=== PATIENT | male | born 1955 | race Caucasian/White ===

== ENCOUNTER 2024-08-08 01:30 | Day surgery (SDC) | payer MEDICARE, SELFPAY ==
[2024-07-30 10:00] VITALS: BMI 31.1
[2024-08-08 11:15] VITALS: BP 158/93; PULSE 95; RESP 20; TEMP 36.1; O2SAT 98
[2024-08-08] MEDS: LACTATED RINGERS 1,000 ML 150 ML IV CONT (11:22)
--- NOTE | 2024-08-08 12:15 | PM.HPGS ---
History of Present Illness History of Present Illness Consent: Risks, benefits, and alternatives have been discussed and questions answered. Patient agrees to proceed with procedure. Chief complaint: Neoplasm Screening Narrative: Andrew Cedeno is a 69 year old male with colon polyp in 2019 Review of Systems Review of Systems: All systems reviewed & are unremarkable except as noted in HPI and below PMFSH Past Medical History Medical History (Updated 08/08/24 @ 12:15 by Artem Mendosa MD) Colon polyp COPD (chronic obstructive pulmonary disease) Hyperplastic colonic polyp Mixed hyperlipidemia Cancer of nasal cavities Hypertension Surgical History Surgical History H/O rhinoplasty Patient had nasal cancer removal surgery 2015 OA H/O colonoscopy Family History Family History Father Hypertension Family history of elevated blood lipids Acute myocardial infarction, Onset Age: 69 Family history of coronary artery disease Heart disease Mother Family history of malignant neoplasm of breast in first degree relative Carcinoma of colon Sibling Family history of malignant neoplasm of breast in first degree relative Carcinoma of colon Malignant neoplasm of prostate Social History Social History (Updated 07/30/24 @ 08:56 by Anastacio Klein) Social History: 07/29/24 somewhat confident with medical forms Smoking status: Former smoker Tobacco type: cigarettes Smoking end date: 01/23/98 Alcohol intake: current Alcohol use details: Rarely Substance use: never Substance use type: does not use Do You Feel Safe in your Home?: Yes Lack of Transportation: No Lack of Food: Never True Current Housing: I Have Housing Concerned About Future Housing: No Difficulty Paying Gas/Electric Bills: No Difficulty Paying for Meds: No Currently Unemployed: No Education: Don't Know Difficulty w/ Childcare or Family Care: No Living arrangements: with family Additional living arrangements comments: Lives with Occupation/Education: retired Spiritual care concerns: No Agree to blood products: Yes Meds Home Medications and Allergies Home Medications ?Medication ?Instructions ?Recorded ?Confirmed ?Type albuterol sulfate 90 mcg/actuation 2 puff inhalation Q6H PRN copd 02/01/24 08/01/24 History aerosol inhaler lisinopril 20 mg tablet 20 mg PO DAILY #90 tabs 02/01/24 08/08/24 Rx umeclidinium 62.5 mcg-vilanterol 1 inh inhalation DAILY 02/01/24 08/08/24 History 25 mcg/actuation powdr for inhalation (Anoro Ellipta) pantoprazole 40 mg tablet,delayed 40 mg PO QAM #90 tabs 06/12/24 08/08/24 Rx release metoprolol tartrate 25 mg tablet 25 mg PO BID #180 tabs 08/07/24 08/08/24 Rx Allergies Allergy/AdvReac Type Severity Reaction Status Date / Time No Known Allergies Allergy Verified 08/08/24 11:14 Vital Signs Vital Signs - 24 hr 08/08/24 11:15 Temperature 97 F L Pulse Rate 95 Respiratory Rate 20 Blood Pressure 158/93 H Pulse Oximetry 98 Oxygen Delivery Room Air Exam Const: General: comfortable and no acute distress HENMT: Face/Nose/Sinus: Normal nares present Eyes: General: appearance normal, both eyes and all related structures Neck: Neck: no JVD Resp: Auscultation: clear to auscultation bilaterally Cardio: Rate: regular rate Rhythm: regular rhythm GI: Inspection: non-distended GI Palp: Yes Soft to palpation Skin: General skin exam: normal color Neuro: General: gait normal Speech: normal speech Extrem: General: normal to inspection Psych: Mental Status: mental status grossly normal Assessment and Plan Assessment and plan (1) Colon polyp: Code(s): K63.5 - Polyp of colon Status: Acute Assessment and Plan: colonoscopy
--- NOTE | 2024-08-08 12:19 | P.PNAN_ITS ---
Anes - Initial Pre Proc Eval Procedure: Operation Date: 08/08/24 12:30 Proposed Procedures p Screening Colonoscopy - Artem Mendosa MD Date/Time: 08/08/24 12:19 Surgeon: Artem Mendosa MD Pre Op Diagnosis: Neoplasm Screening Patient Data Age: 69 Gender: M Height: 1.83 m Weight: 100.7 kg Last Vital Signs Temp 36.1 C L 08/08/24 11:15 Pulse 95 08/08/24 11:15 Resp 20 08/08/24 11:15 BP 158/93 H 08/08/24 11:15 Pulse Ox 98 08/08/24 11:15 O2 Del Method Room Air 08/08/24 11:15 Allergies Allergy/AdvReac Type Severity Reaction Status Date / Time No Known Allergies Allergy Verified 08/08/24 11:14 Home Medications ?Medication ?Instructions ?Recorded ?Confirmed ?Type albuterol sulfate 90 mcg/actuation 2 puff inhalation Q6H PRN copd 02/01/24 08/01/24 History aerosol inhaler lisinopril 20 mg tablet 20 mg PO DAILY #90 tabs 02/01/24 08/08/24 Rx umeclidinium 62.5 mcg-vilanterol 1 inh inhalation DAILY 02/01/24 08/08/24 History 25 mcg/actuation powdr for inhalation (Anoro Ellipta) pantoprazole 40 mg tablet,delayed 40 mg PO QAM #90 tabs 06/12/24 08/08/24 Rx release metoprolol tartrate 25 mg tablet 25 mg PO BID #180 tabs 08/07/24 08/08/24 Rx Patient hx anesthesia problems: none Family hx anesthesia problems: none Results Review: All pre-operative results and documents have been reviewed as part of the pre- operative evaluation. [facility] Past Medical History Medical History Colon polyp COPD (chronic obstructive pulmonary disease) Hyperplastic colonic polyp Mixed hyperlipidemia Cancer of nasal cavities Hypertension Surgical History Surgical History H/O rhinoplasty Patient had nasal cancer removal surgery 2015 OA H/O colonoscopy Family History Family History Father Hypertension Family history of elevated blood lipids Acute myocardial infarction, Onset Age: 69 Family history of coronary artery disease Heart disease Mother Family history of malignant neoplasm of breast in first degree relative Carcinoma of colon Sibling Family history of malignant neoplasm of breast in first degree relative Carcinoma of colon Malignant neoplasm of prostate Social History Social History Social History: 07/29/24 somewhat confident with medical forms Smoking status: Former smoker Tobacco type: cigarettes Smoking end date: 01/23/98 Alcohol intake: current Alcohol use details: Rarely Substance use: never Substance use type: does not use Do You Feel Safe in your Home?: Yes Lack of Transportation: No Lack of Food: Never True Current Housing: I Have Housing Concerned About Future Housing: No Difficulty Paying Gas/Electric Bills: No Difficulty Paying for Meds: No Currently Unemployed: No Education: Don't Know Difficulty w/ Childcare or Family Care: No Living arrangements: with family Additional living arrangements comments: Lives with Occupation/Education: retired Spiritual care concerns: No Agree to blood products: Yes Anes - Eval Final PreProcedure Day of Procedure 08/08/24 12:19 Patient weight: overweight Heart: regular rate and rhythm Lungs: decreased breath sounds Airway: Mallampati scale class II Neurological: alert and oriented Last oral intake: >/= 8 hours ASA classification: III Emergent: no Anesthetic plan: proceed Anesthesia type and monitoring: general GIVS and standard monitoring Results Review: All pre-operative results and documents have been reviewed as part of the pre- operative evaluation. Informed Consent: The patient's anesthetic plan and its attendant risks and benefits were discussed with the patient/family/POA. Questions were solicited and answers provided to the satisfaction of the patient/family/POA.
[2024-08-08 12:34] VITALS: BP 118/75; PULSE 81; RESP 19; O2SAT 94
[2024-08-08 12:44] VITALS: BP 122/91; PULSE 74; RESP 17; O2SAT 99
[2024-08-08 12:54] VITALS: BP 122/78; PULSE 66; RESP 14; O2SAT 97
== END 2024-08-08 13:09 | disposition home or self-care (01) ==
PROVIDERS: PCP Nurse Practitioner Family; Visit Provider Internal Medicine Gastroenterology
PROC: 0DJD8ZZ Inspection of Lower Intestinal Tract, Via Natural or Artificial Opening Endoscopic (ICD-10-PCS; CPT 45378; principal; 2024-08-08 12:30)
DX: Z12.11 Encounter for screening for malignant neoplasm of colon (principal); D12.5 Benign neoplasm of sigmoid colon; D12.3 Benign neoplasm of transverse colon; K57.30 Diverticulosis of large intestine without perforation or abscess without bleeding; K64.8 Other hemorrhoids; Z87.891 Personal history of nicotine dependence
CPT/HCPCS: 45385; 88305; J2003; J2704; J7120

== ENCOUNTER 2024-10-25 08:54 | Emergency (ER) | payer MEDICARE, SELFPAY ==
[2024-10-25] VITALS (11 sets, daily range): BP systolic 124–156; BP diastolic 73–102; PULSE 61–82; RESP 12–17; TEMP 36.4–36.6; O2SAT 93–98
--- NOTE | ~2024-10-25 | XR_ITS ---
CHEST RADIOGRAPH, PA AND LATERAL CLINICAL HISTORY: Lightheadedness, near syncope . COMPARISON: 08/27/2012 TECHNIQUE: PA and lateral views of the chest. FINDINGS The cardiomediastinal silhouette is unremarkable. The lungs are clear. Visualized osseous structures and soft tissues are unremarkable. IMPRESSION: No focal infiltrate or effusion. Reviewed, dictated and finalized at location [facility]
--- OUTSIDE RECORDS SUMMARY | 2024-10-25 09:29 | XMS_ITS | Clinical Summary ---
Author Organization [facility] Address [address] [place] [address] Care Team Providers Care Metropolitan Editor Name Role Phone Abida Karlie Emir [facility] Primary Care Provider + Allergies No known active allergies Medications metoprolol tartrate 25 MG tablet Take 1 tablet (25 mg total) by mouth 2 (two) times daily. 11/20/2020 Active pantoprazole EC (PROTONIX) 40 MG tablet Take 1 tablet every day by oral route in the morning for 30 days. Active lisinopril (PRINIVIL) 20 MG tablet 10/20/2022 Active albuterol sulfate HFA 108 (90 Base) MCG/ACT inhalerIndicatio ns:LOPEZ (dyspnea on exertion),Chroni c obstructive pulmonary disease, unspecified COPD type (CMS/HCC HHS/HCC) Inhale 2 puffs into the lungs every 6 (six) hours as needed for Wheezing. 8 g 3 01/02/2024 Active ANORO ELLIPTA 62.5-25 MCG/ACT inhalerIndicatio ns:LOPEZ (dyspnea on exertion),Chroni c obstructive pulmonary disease, unspecified COPD type (CMS/HCC HHS/HCC) TAKE 1 PUFF BY MOUTH EVERY DAY 60 each 5 06/28/2024 Active Immunizations Name Administration Dates Next Due Flublok (Quadrivalent) 06/09/2020 Family History Medical History Relation Comments Heart Disease Father Cancer Mother Cancer Sister Relation Status Comments Father Mother Sister Social History Tobacco Use Types Packs/Day Years Used Date Smoking Tobacco: Former Cigarettes 0.5 20 Smokeless Tobacco: Never Tobacco Cessation:Counseling Given: Yes Alcohol Use Standard Drinks/Week Comments Not Currently 0 (1 standard drink = 0.6 oz pur e alcohol) Sex and Gender Information Value Date Recorded Sex Assigned at Not on file Legal Sex Male 7:44 PM CDT Gender Identity Not on file Sexual Orientation Not on file Last Filed Vital Signs Vital Sign Reading Time Taken Comments Blood Pressure 113/74 04/27/2024 7:35 AM CDT Pulse 60 04/27/2024 7:35 AM CDT Temperature 36.2 C (97.1 F) 04/27/2024 7:35 AM CDT Respiratory Rate 16 04/27/2024 7:35 AM CDT Oxygen Saturation 96% 04/27/2024 7:35 AM CDT RA Inhaled Oxygen Concentration - - Weight 103.9 kg (229 lb) 04/27/2024 7:35 AM CDT Height 182.9 cm (6') 04/27/2024 7:35 AM CDT Body Mass Index 31.06 04/27/2024 7:35 AM CDT Plan of Treatment Upcoming Encounters Date Type Department Care Team (Late st Contact Info) Description 05/01/2025 8:20 AM CDT Office Visit [facility] Multispecialty Care - [facility] [address] [place] [id number] Mal Merino DO [address] [place] [address] Health Maintenance Due Date Last Done Comments Colorectal Cancer Screening Colonoscopy (10 Years) 1957 Pneumococcal Vaccine: 65+ Ye ars (1 of 2 - PCV) 1963 Hepatitis C 1975 DTaP, Tdap and Td Vaccines ( 1 - Tdap) 01/23/1976 Zoster Vaccines (1 of 2) 2007 RSV Immunization or 60+ Years (1 - Risk 60-74 years 1-dose series) 2017 AAA SCREENING 2022 Annual Medicare Wellness Visit 2022 COVID-19 Vaccine ( - 2023-2 5 season) 2024 Influenza Adult (#1) 2024 06/09/2020 PHQ-2 (Physician [place]) 08/22/2024 Meningococcal B Vaccine Aged Out No l onger eligible based on patient's age to complete this topic Meningococcal Vaccine Aged Out No alfonso jacoby eligible based on patient's age to complete this topic RSV Immunizations Under 20 Months Aged Out No longer eligible based on patient's age to complete this topic Insurance MEDICARE [employer] [place] [id number] Care Teams Metropolitan Editor Relationship Specialty Start Date End Date Karlie Tai, OPERATIONAL RISK CONSULTANT- [address] [place] [address] PCP - General NURSE PRACTITIONER 02/17/21
--- OUTSIDE RECORDS SUMMARY | 2024-10-25 09:29 | XMS_ITS | CONTINUITY OF CARE DOCUMENT ---
Author Name khari lucia Address Unknown Organization [facility] Address [address] [place] [address] [address], [place] [address] Phone [phone] Care Team Providers Care Horse Wrangler Name Role Phone Reece FRASER, Sander Unavailable JONE FRASER, JASON Alva Unavailable Abida LAP WINDING MACHINE OPERATOR-BC, Karlie Field Unavailable PROBLEMS Condition Status Date Provider Notes Cardiology examination completed - Sander Newell MD HTN active Sander Newell MD Hyperlipidemia active Sander Newell MD GERD active Sander Newell MD Obesity active Sander Newell MD Shortness of breath active Sander Marinelli Cardiology examination active Elen Turk i MELTER LOADER ENCOUNTERS Date Type Provider Location Encounter Diag nosis 09/10 - 09/11 In-person encounter Office Visit Sander Newell MD [facility] Cardiology examination 08/29 - 09/10 In-person encounter Office Visit Sander Newell MD [facility] - In-person encounter Office Visit Sander Newell MD [facility] Cardiology examinationHTNHyperlipidemiaGERDObesityShortness of breath VITAL SIGNS Date Observation Value Provider Body Mass Index (Ratio) 32.03 kg/m2 Ariel Newell MD blood pressure, diastolic 86 mm[Hg] Hunter chirinos Root blood pressure, systolic 125 mm[Hg] Yancy elizondo Root oxygen saturation, oximetry 96 % Catherine Root pulse rate 68 /min Catherine Root weight E&M 236.2 [lb_av] Catherine Root height E&M 72 [in_i] Catherine Root blood pressure, cuff size regular Hunter chirinos Root Body Mass Index (Ratio) 29.97 kg/m2 Ariel Newell MD blood pressure, diastolic 78 mm[Hg] Li nkLogic blood pressure, systolic 118 mm[Hg] Elsa ic blood pressure, cuff size regular Ja rret blood pressure, diastolic 78 mm[Hg] Ja rret blood pressure, systolic 118 mm[Hg] Jar ret pulse rate 68 /min Luis Enrique er y oxygen saturation, oximetry 96 % Luis Enrique respiratory rate E&M 12 /min Luis Enrique weight E&M 221 [lb_av] Luis Enrique Easterda y height E&M 72 [in_i] Luis Enrique erda y Body Mass Index (Ratio) 30.11 kg/m2 Ariel Newell MD blood pressure, diastolic 82 mm[Hg] Li nkLogic blood pressure, systolic 137 mm[Hg] Elsa kLogic blood pressure, cuff size regular Ja rret blood pressure, diastolic 82 mm[Hg] Ja rret blood pressure, systolic 137 mm[Hg] Jar ret pulse rate 66 /min Luis Enrique Easterda y oxygen saturation, oximetry 96 % [facility] respiratory rate E&M 12 /min [facility] height E&M 72 [in_i] [facility] y weight E&M 222 [lb_av] [facility] y ALLERGIES No Known Drug Allergies HISTORY OF MEDICATION USE Medication Status Instructions Dates Provider Indications Com ments albuterol sulfate 90 mcg/actuation HFA aerosol inhaler active INHALE TWO PUFFS INTO THE LUNGS EVERY SIX HOURS NEEDED FOR WHEEZING Catherine Root Anoro Ellipta 62.5-25 mcg/actuation blister with device active TAKE ONE PUFF BY MOUTH ONE TIME A DAY Catherine Root atorvastatin 10 mg tablet completed TAKE 1 TABLET BY MOUTH DAILY AT BEDTIME 8 - 8 Luis Enrique pantoprazole 40 mg tablet,delayed release (DR/EC) active TAKE 1 TABLET BY MOUTH EVERY MORNING Catherine Root metoprolol tartrate 25 mg tablet active TAKE ONE TABLET BY MOUTH TWO TIMES A DAY Catherine Root lisinopril 20 mg tablet active TAKE ONE TABLET BY MOUTH ONCE A DAY Catherine Root benzonatate 200 mg capsule completed TAKE 1 CAPSULE EVERY 8 HOURS BY ORAL ROUTE NEEDED FOR 7 DAYS. - 8 SOCIAL HISTORY Date Observation Value Provider personal history of marijuana use no Jenny Ventimiglia [facility] drug use no Jenny Ventimig roxana [facility] alcohol use no Jenny Ventimig roxana [facility] cigarette use yes Jenny Ventimi glia [facility] smoking status Former smoker Jenny Venti miglia [facility] social history revie wed E&M reviewed - no changes required Sander Newell MD social history revie wed E&M reviewed - no changes required Sander Newell MD social history E&M He works for [employer]. S moking History: Americo paul is a former smoker. Sander Newell MD cigarette use yes Luis Enrique Bates ay smoking status Former smoker Luis Enrique Clemens rday INSURANCE PROVIDERS Payer name Policy type / Coverage type Ike red republican ID [employer] insurance company 000 [id number] [place] MEDICARE Medicare [id number] ADVANCE DIRECTIVES Name Date DISCUSSED - NO DECISION MADE TREATMENT PLAN Date Name Performer [id number],C,H e has been experiencing dyspnea on exertion for last few months. Is following pulmonary and advised to continue doing so S tress showed moderate size, moderate perfusion defect of the inferior wall with minimal reversibility but otherwise unremarkable. ECHO EF 62%. Sander Newell MD [id number],C,Weight loss a dvised Sander Newell MD [id number],C,N o longer on statin. Aim for LDL less than 70. Sander Newell MD [id number],C,B lood pressure control is satisfactory. BP today: 118/78 P rior BP: 137/82 (06/08/2023) His updated medication list for this problem includes: Metoprolol Tartrate 25 Mg Tablet (Metoprolol tartrate) Lisinopril 20 Mg Tablet (Lisinopril) Sander Newell MD [id number],C,H e has been experiencing dyspnea on exertion for last few months. Is following pulmonary S tress showed moderate size, moderate perfusion defect of the inferior wall with minimal reversibility but otherwise unremarkable. ECHO EF 62%. Sander Newell MD [id number],C,O n Pantoprazole 40 Mg Sander Newell MD [id number],C,H e has been experiencing dyspnea on exertion for last few months. He gets SOB after walking flight of stairs but states it resolves within 30 seconds. He quit smoking 25 years ago. We will arrange for echo and routine stress test. Sander Newell MD [id number],C,O n Pantoprazole 40 Mg Sander Newell MD [id number],C,On statin Mere Newell MD [id number],C,B lood pressure control is satisfactory. BP today: 137/82 His updated medication list for this problem includes: Metoprolol Tartrate 25 Mg Tablet (Metoprolol tartrate) Lisinopril 20 Mg Tablet (Lisinopril) Sander Newell MD Cardiology: H is updated medication list for this problem includes: Pantoprazole 40 Mg Tablet,delayed Release (dr/ec) (Pantoprazole) ..... Take 1 tablet by mouth every morning [facility] Cardiology:most like ly r/t underlying COPD s tress and echo benign W ill continue on inhalers H is updated medication list for this problem includes: Lisinopril 20 Mg Tablet (Lisinopril) ..... Take one tablet by mouth once a day Metoprolol Tartrate 25 Mg Tablet (Metoprolol tartrate) ..... Take one tablet by mouth two times a day [facility] Cardiology [facility] Cardiology:BP 125/86 continue present medication regimen H is updated medication list for this problem includes: Lisinopril 20 Mg Tablet (Lisinopril) ..... Take one tablet by mouth once a day Metoprolol Tartrate 25 Mg Tablet (Metoprolol tartrate) ..... Take one tablet by mouth two times a day [facility] Cardiology:He has be en experiencing dyspnea on exertion for last few months. Is following pulmonary and advised to continue doing so S tress showed moderate size, moderate perfusion defect of the inferior wall with minimal reversibility but otherwise unremarkable. ECHO EF 62%. Sander Newell MD Cardiology:Weight loss advised M nahun Newell MD Cardiology:No longer on statin. Aim for LDL less than 70. Sander Newell MD Cardiology:Blood pre ssure control is satisfactory. BP today: 118/78 P rior BP: 137/82 (06/08/2023) His updated medication list for this problem includes: Metoprolol Tartrate 25 Mg Tablet (Metoprolol tartrate) Lisinopril 20 Mg Tablet (Lisinopril) Sander Newell MD Cardiology:He has be en experiencing dyspnea on exertion for last few months. Is following pulmonary S tress showed moderate size, moderate perfusion defect of the inferior wall with minimal reversibility but otherwise unremarkable. ECHO EF 62%. Sander Newell MD Cardiology:On Pantop razole 40 Mg Sander Newell MD Cardiology:He has be en experiencing dyspnea on exertion for last few months. He gets SOB after walking flight of stairs but states it resolves within 30 seconds. He quit smoking 25 years ago. We will arrange for echo and routine stress test. Sander Newell MD Cardiology:On Pantop razole 40 Mg Sander Newell MD Cardiology:On statin Sander velez MD Cardiology:Blood pre ssure control is satisfactory. BP today: 137/82 His updated medication list for this problem includes: Metoprolol Tartrate 25 Mg Tablet (Metoprolol tartrate) Lisinopril 20 Mg Tablet (Lisinopril) Sander Newell MD Date Name Stress Exercise Card iolite Stress Routine Complete Echo HISTORY OF PROCEDURES Procedure Date Procedure Name Provider Procedure Notes S tatus EKG Sander Newell MD complet ed EKG Sander Newell MD complet ed EKG Sander Newell MD complet ed
--- NOTE | 2024-10-25 09:47 | ECG_ITS ---
Test Date: 2024-10-25 09:53:22 Measurements Intervals [place] Rate: 65 P: 34 IA: 145 QRS: -4 QRSD: 80 T: 38 QT: 396 QTc: 412 Interpretive Statements SINUS RHYTHM No previous ECG available for comparison Electronically Signed On 10-25-2024 14:03:20 MARKETING SYSTEMS MANAGER by Yazan Machuca M.D.
[2024-10-25 10:01] LABS: Basophils Percent Auto 0.5 % (0.2-1.2); Eosinophils Absolute Auto 0.1 K/mm3 (0-0.3); Eosinophils Percent Auto 0.9 % (0-4.4); Hematocrit 49.4 % (42.0-52.0); Hemoglobin 16.9 g/dL (14.0-18.0); Immature Granulocyte Absolute 0.02 K/mm3 (0.00-0.031); Immature Granulocyte Percent A 0.2 % (0-0.5); Lymphocytes Absolute Auto 1.22 K/mm3 (0.9-3.2); Lymphocytes Percent Auto 14.3 % (18.3-44.2); Mean Corpuscular HGB Conc 34.2 g/dl (32-36); Mean Corpuscular Hemoglobin 31.1 pg (26-34); Mean Platelet Volume 8.9 fl (7.4-10.4); Monocytes Absolute Auto 0.5 K/mm3 (0.1-0.6); Monocytes Percent Auto 5.6 % (2.6-8.5); Neutrophils Absolute Auto 6.7 K/mm3 (1.3-6.7); Neutrophils Percent Auto 78.5 % (45.5-73.1); Platelet Count Result 244 k/mm3 (150-375); Red Blood Count 5.43 M/mm3 (4.6-6.20); Red Cell Distribution Width 12.6 % (11.5-14.5); White Blood Count 8.5 K/mm3 (4.5-10.0)
[2024-10-25 10:19] LABS: Alanine Aminotransferase 27 U/L (6-50); Albumin Level 4.1 g/dL (3.5-5.1); Alkaline Phosphatase 69 U/L (38-126); Anion Gap 8 mmol/L (4-12); Aspartate Amino Transferase 20 U/L (17-59); Bilirubin,Total 0.9 mg/dL (0.2-1.3); Blood Urea Nitrogen 11 mg/dL (9-20); Calcium 9.2 mg/dL (8.4-10.2); Carbon Dioxide 25 mmol/L (22-30); Chloride 106 mmol/L (98-107); Estimated CRCL calculation 72 ml/min; Estimated Glomerular Filt Rate > 60; Glucose 115 mg/dL (65-110); Potassium 4.8 mmol/L (3.4-5.0); Sodium 139 mmol/L (137-145)
--- OUTSIDE RECORDS SUMMARY | 2024-10-25 11:04 | XMS_ITS | Clinical Summary ---
Author Organization [facility] Address [address] [place] [address] Care Team Providers Care Inset Cutter Name Role Phone Abida Karlie Emir [facility] Primary Care Provider + Allergies No known [...] Description 05/01/2025 8:20 AM CDT Office Visit [facility] Medical [facility] Multispecialty Care - [facility] [address] [place] [id number] Mal Merino DO [address] [place] [address] Health Maintenance Due Date Last Done Comments [...] Influenza Adult (#1) 2024 06/09/2020 PHQ-2 (Physician [place]) 08/22/2024 Meningococcal B Vaccine Aged Out No l onger eligible based on patient's age to complete this topic Meningococcal Vaccine Aged Out No alfonso jacoby eligible based on patient's age to complete this topic RSV Immunizations Under 20 Months Aged Out No longer eligible based on patient's age to complete this topic Insurance MEDICARE [employer] [place] [id number] Care Teams Inset Cutter Relationship Specialty Start Date End Date Karlie Tai, OCCASIONAL CAREGIVER- [address] [place] [address] PCP - General NURSE PRACTITIONER 02/17/21
--- OUTSIDE RECORDS SUMMARY | 2024-10-25 11:04 | XMS_ITS | CONTINUITY OF CARE DOCUMENT ---
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 Shortness of breath active Sander Marinelli Obesity active Sander Newell MD GERD active Sander Newell MD Hyperlipidemia active Sander Newell MD HTN active Sander Newell MD Cardiology examination completed - Sander Newell MD ENCOUNTERS Date Type Provider Location Encounter Diag nosis 09/10 - 09/11 In-person encounter Office Visit Sander Newell MD [facility] Cardiology examination 08/29 - 09/10 In-person encounter Office Visit Sander Newell MD [facility] - In-person encounter Office Visit Sander Newell MD [facility] Cardiology examinationHTNHyperlipidemiaGERDObesityShortness of breath VITAL SIGNS [...] Easterda y oxygen saturation, oximetry 96 % [facility] respiratory rate E&M 12 /min [facility] height E&M 72 [in_i] [facility] y weight E&M 222 [lb_av] [facility] y ALLERGIES No Known Drug Allergies HISTORY [...] history of marijuana use no Jenny Ventimiglia [facility] drug use no Jenny Ventimig roxana [facility] alcohol use no Jenny Ventimig roxana [facility] cigarette use yes Jenny Ventimi glia [facility] smoking status Former smoker Jenny Venti miglia [facility] social history revie wed E&M reviewed - no changes required Sander Newell MD social history revie wed E&M reviewed - no changes required Sander Newell MD social history E&M He works for [employer]. S moking History: Americo paul is a former smoker. Sander Newell MD cigarette use yes Luis Enrique Bates ay smoking status Former smoker Luis Enrique Clemens rday INSURANCE PROVIDERS Payer name Policy type / Coverage type Ike red democrat ID [employer] insurance company 000 [id number] [place] [employer] Medicare [id number] ADVANCE DIRECTIVES Name Date DISCUSSED - NO DECISION MADE TREATMENT PLAN Date Name Performer [id number],C,H e has been experiencing dyspnea on exertion for last few months. Is following pulmonary and advised to continue doing so S tress showed moderate size, moderate perfusion defect of the inferior wall with minimal reversibility but otherwise unremarkable. ECHO EF 62%. Sander Newell MD [id number],C,Weight loss a dvised Sander Newell MD [id number],C,N o longer on statin. Aim for LDL less than 70. Sander Newell MD [id number],C,B lood pressure control is satisfactory. BP today: 118/78 P rior BP: 137/82 (06/08/2023) His updated medication list for this problem includes: Metoprolol Tartrate 25 Mg Tablet (Metoprolol tartrate) Lisinopril 20 Mg Tablet (Lisinopril) Sander Newell MD [id number],C,H e has been experiencing dyspnea on exertion for last few months. Is following pulmonary S tress showed moderate size, moderate perfusion defect of the inferior wall with minimal reversibility but otherwise unremarkable. ECHO EF 62%. Sander Newell MD [id number],C,O n Pantoprazole 40 Mg Sander Newell MD [id number],C,H e has been experiencing dyspnea on exertion for last few months. He gets SOB after walking flight of stairs but states it resolves within 30 seconds. He quit smoking 25 years ago. We will arrange for echo and routine stress test. Sander Newell MD [id number],C,O n Pantoprazole 40 Mg Sander Newell MD [id number],C,On statin Mere Newell MD [id number],C,B lood pressure control is satisfactory. BP today: 137/82 His updated medication list for this problem includes: Metoprolol Tartrate 25 Mg Tablet (Metoprolol tartrate) Lisinopril 20 Mg Tablet (Lisinopril) Sander Newell MD Cardiology: H is updated medication list for this problem includes: Pantoprazole 40 Mg Tablet,delayed Release (dr/ec) (Pantoprazole) ..... Take 1 tablet by mouth every morning [facility] Cardiology:most like ly r/t underlying COPD s tress and echo benign W ill continue on inhalers H is updated medication list for this problem includes: Lisinopril 20 Mg Tablet (Lisinopril) ..... Take one tablet by mouth once a day Metoprolol Tartrate 25 Mg Tablet (Metoprolol tartrate) ..... Take one tablet by mouth two times a day [facility] Cardiology [facility] Cardiology:BP 125/86 continue present medication regimen H is updated medication list for this problem includes: Lisinopril 20 Mg Tablet (Lisinopril) ..... Take one tablet by mouth once a day Metoprolol Tartrate 25 Mg Tablet (Metoprolol tartrate) ..... Take one tablet by mouth two times a [facility]:He has be en experiencing dyspnea on [...]
[2024-10-25 11:17] LABS: Magnesium 2.1 mg/dL (1.6-2.3)
[2024-10-25 11:29] LABS: Influenza A QL RT-PCR Negative (Negative); Influenza B QL RT-PCR Negative (Negative); RSV RNA, RT-PCR Negative (Negative); SARS-CoV-2 RNA PCR Negative (Negative)
--- NOTE | 2024-10-25 11:32 | ED_ITS ---
HPI - General Adult General Chief complaint: Unspecified Stated complaint: dizzy, H/A, sweats Time Seen by Provider: 10/25/24 09:49 History of Present Illness HPI narrative: 69-year-old male present to the emergency department for evaluation after having a near syncopal episode while he was driving. Patient states he began to feel hot and flushed and did have some associated lightheadedness. Patient pole his vehicle over did feel improved after few minutes but then had subsequent nausea and vomiting. Patient then was able to continue his drive to work and while at work they called EMS and patient was evaluated and advised to present to the emergency department for further evaluation. Upon arrival emergency department patient denies any current complaints. Patient denies any previous cardiac history. Patient denies any current chest pain shortness of breath nausea vomiting or diarrhea. Patient denies any recent illnesses. Related Data Home Medications ?Medication ?Instructions ?Recorded ?Confirmed ?Last Taken ?Type albuterol sulfate 90 mcg/actuation 2 puff inhalation Q6H PRN copd 02/01/24 08/01/24 Unknown History aerosol inhaler umeclidinium 62.5 mcg-vilanterol 1 inh inhalation DAILY 02/01/24 08/08/24 08/07/24 History 25 mcg/actuation powdr for inhalation (Anoro Ellipta) Allergies Allergy/AdvReac Type Severity Reaction Status Date / Time No Known Allergies Allergy Verified 10/25/24 09:18 Review of Systems 2 Review of Systems: All systems reviewed & are unremarkable except as noted in HPI and below PMFSH Past Medical History Medical History Colon polyp COPD (chronic obstructive pulmonary disease) Hyperplastic colonic polyp Mixed hyperlipidemia Cancer of nasal cavities Hypertension Surgical History Surgical History H/O rhinoplasty Patient had nasal cancer removal surgery 2015 OA H/O colonoscopy Family History Family History Father Hypertension Family history of elevated blood lipids Acute myocardial infarction, Onset Age: 67 Family history of coronary artery disease Heart disease Mother Family history of malignant neoplasm of breast in first degree relative Carcinoma of colon Sibling Family history of malignant neoplasm of breast in first degree relative Carcinoma of colon Malignant neoplasm of prostate Social History Social History Social History: 07/29/24 somewhat confident with medical forms Smoking status: Former smoker Tobacco type: cigarettes Smoking end date: 01/23/98 Alcohol intake: current Alcohol use details: Rarely Substance use: never Substance use type: does not use Do You Feel Safe in your Home?: Yes Lack of Transportation: No Lack of Food: Never True Current Housing: I Have Housing Concerned About Future Housing: No Difficulty Paying Gas/Electric Bills: No Difficulty Paying for Meds: No Currently Unemployed: No Education: Don't Know Difficulty w/ Childcare or Family Care: No Living arrangements: with family Additional living arrangements comments: Lives with Occupation/Education: retired Spiritual care concerns: No Agree to blood products: Yes Exam 2 Narrative: APPEARANCE: Well appearing, no pain, no distress, well-nourished. HEAD: normocephalic, atraumatic. EYES: PERRLA/EOMI, conjunctivae clear. NOSE: Normal no drainage EARS:TMS clear with good light reflex. THROAT: Pharynx clear, no exudate. NECK: Supple. No adenopathy, no masses. RESPIRATORY: Airway patent, respirations nonlabored. Clear to auscultation bilaterally, no rales, rhonchi, wheezing. CARDIOVASCULAR: Regular rate and rhythm without murmurs rubs or gallops. ABDOMINAL: Soft, nontender, nondistended, normal bowel sounds MUSCULOSKELETAL: Moves all extremities. Strength/ROM intact, No edema, No calf tenderness. NEURO: Alert. Cranial nerves II through XII intact. Good gait. Good coordination SKIN: Warm, dry. Normal Color Course Vital Signs Vital signs: Vital Signs Temperature 97.6 F 10/25/24 09:07 Pulse Rate 66 10/25/24 09:07 Respiratory Rate 12 10/25/24 09:07 Blood Pressure 125/90 10/25/24 09:07 Pulse Oximetry 98 10/25/24 09:07 Oxygen Delivery Room Air 10/25/24 09:07 Temperature 97.8 F 10/25/24 15:32 Pulse Rate 62 10/25/24 15:32 Respiratory Rate 16 10/25/24 15:32 Blood Pressure 124/89 10/25/24 15:32 Pulse Oximetry 97 10/25/24 15:32 Oxygen Delivery Room Air 10/25/24 09:07 Medical Decision Making MDM Narrative Medical decision making narrative: 69-year-old male presents emergency department for evaluation after having a near syncopal episode while driving. Patient reports he has had these episodes previously when exposed to heat. Patient also states he did not have anything to eat for breakfast. Patient is currently afebrile with no leukocytosis and a stable hemoglobin of 16.9. Patient has no acute abnormalities on his CMP TSH is normal. Patient was negative for influenza RSV and for COVID. Chest x-ray shows no focal infiltrate or effusion. EKG shows normal sinus rhythm. Patient's initial orthostatic vital signs were positive these did improve with rehydration. On re-evaluation patient does feel improved. Patient denies any current symptoms and patient did request to be discharged home. All questions concerns were addressed. Differential Diagnosis Differential Diagnosis: Dehydration, near syncope, cardiac arrhythmia, COVID, RSV, influenza, pneumonia Vital Signs Vital Signs: Vital Signs Temperature 97.6 F 10/25/24 09:07 Pulse Rate 66 10/25/24 09:07 Respiratory Rate 12 10/25/24 09:07 Blood Pressure 125/90 10/25/24 09:07 Pulse Oximetry 98 10/25/24 09:07 Oxygen Delivery Room Air 10/25/24 09:07 Temperature 97.8 F 10/25/24 15:32 Pulse Rate 62 10/25/24 15:32 Respiratory Rate 16 10/25/24 15:32 Blood Pressure 124/89 10/25/24 15:32 Pulse Oximetry 97 10/25/24 15:32 Oxygen Delivery Room Air 10/25/24 09:07 Lab Data Lab results reviewed: Yes I reviewed the patient's lab results. 10/25/24 09:54 10/25/24 09:54 Labs: Lab Results 10/25/24 10/25/24 Range/Units 09:54 10:48 WBC 8.5 (4.5-10.0) K/mm3 RBC 5.43 (4.6-6.20) M/mm3 Hgb 16.9 (14.0-18.0) g/dL Hct 49.4 (42.0-52.0) % MCV 91.0 (80-100) fl MCH 31.1 (26-34) pg MCHC 34.2 (32-36) g/dl RDW 12.6 (11.5-14.5) % Plt Count 244 (150-375) k/mm3 MPV 8.9 (7.4-10.4) fl Immature Gran % (Auto) 0.2 (0-0.5) % Neut % (Auto) 78.5 H (45.5-73.1) % Lymph % (Auto) 14.3 L (18.3-44.2) % [place] % (Auto) 5.6 (2.6-8.5) % Eos % (Auto) 0.9 (0-4.4) % Baso % (Auto) 0.5 (0.2-1.2) % Lymph # (Auto) 1.22 (0.9-3.2) K/mm3 [place] # (Auto) 0.5 (0.1-0.6) K/mm3 Eos # (Auto) 0.1 (0-0.3) K/mm3 Baso # (Auto) 0.0 (0.0-0.1) K/mm3 Abs Immat Gran (auto) 0.02 (0.00-0.031) K/mm3 Absolute Neuts (auto) 6.7 (1.3-6.7) K/mm3 Absolute Nucleated RBC 0.000 (0.0-0.012) K/mm3 Nucleated RBC % 0.0 (0.0-0.2) % Sodium 139 (137-145) mmol/L Potassium 4.8 (3.4-5.0) mmol/L Chloride 106 (98-107) mmol/L Carbon Dioxide 25 (22-30) mmol/L Anion Gap 8 (4-12) mmol/L BUN 11 (9-20) mg/dL Creatinine 1.11 (0.7-1.3) mg/dL Estim Creat Clear Calc 72 ml/min Estimated GFR > 60 (59 - ) Glucose 115 H (65-110) mg/dL Calcium 9.2 (8.4-10.2) mg/dL Magnesium 2.1 (1.6-2.3) mg/dL Total Bilirubin 0.9 (0.2-1.3) mg/dL AST 20 (17-59) U/L ALT 27 (6-50) U/L Alkaline Phosphatase 69 (38-126) U/L Total Protein 7.0 (6.3-8.2) g/dL Albumin 4.1 (3.5-5.1) g/dL TSH (Reflex) 2.980 (0.465-4.68) uIU/mL Influenza A (RT-PCR) Negative (Negative) Influenza B (RT-PCR) Negative (Negative) RSV (RT-PCR) Negative (Negative) SARS-CoV-2 RNA (RT-PCR) Negative (Negative) Imaging Data Radiologist's impression: Impressions Chest X-Ray 10/25/24 11:21 IMPRESSION: No focal infiltrate or effusion. Discharge Plan Discharge Clinical Impression: Orthostatic hypotension Patient Disposition: Home, Self-Care Condition: Stable Instructions: Antibiotic Form, Hypotension (ED), Near Syncope (ED) Additional Instructions: Drink plenty of fluids. Have close follow-up with your primary care physician. If you have any worsening symptoms then please call or return to the emergency department. Patient Language: [place] Prescriptions: No Action Anoro Ellipta 62.5-25 mcg/actuation blister with device 1 inh inhalation DAILY albuterol sulfate 90 mcg/actuation HFA aerosol inhaler 2 puff inhalation Q6H PRN (Reason: copd) pantoprazole 40 mg tablet,delayed release (DR/EC) 40 mg PO QAM Qty: 90 1RF metoprolol tartrate 25 mg tablet 25 mg PO BID Qty: 180 1RF lisinopril 20 mg tablet 20 mg PO DAILY Qty: 90 3RF Follow-up/Referrals: Karlie Tai APRN [Primary Care Provider] -
[2024-10-25] MEDS: SODIUM CHLORIDE 0.9% IV 1,000 ML 999 ML IV CONT (12:11)
== END 2024-10-25 15:33 | disposition home or self-care (01) ==
PROVIDERS: Emergency Provider Emergency Medicine; PCP Nurse Practitioner Family
DX: I95.1 Orthostatic hypotension (principal); Z20.822 Contact with and (suspected) exposure to COVID-19; I10 Essential (primary) hypertension; J44.9 Chronic obstructive pulmonary disease, unspecified; E78.2 Mixed hyperlipidemia; Z86.0102 Personal history of hyperplastic colon polyps; Z87.891 Personal history of nicotine dependence
CPT/HCPCS: 36415; 71046; 80053; 83735; 84443; 85025; 87637; 93005; 96360; 99284; J7030